=== PATIENT | male | born 1990 | race Caucasian/White ===

== ENCOUNTER 2016-11-05 11:48 | Inpatient (IN) | payer OTHER, MEDICAID ==
[~2016-11-05] VITALS: Ht 167.6 cm; Wt 86.4 kg
[2016-11-05 11:53] VITALS: BP 154/92; PULSE 89; RESP 16; O2SAT 99
--- NOTE | 2016-11-05 12:57 | ED.REPORT ---
HPI-General Illness Date of Service Nov 05, 2016 ED Provider: Alexander Guerra DO 26 year old male with a history of Xanax dependency and THC use presents to the ER brought in by his father referred by patient's counselor due to confusion and memory loss. He endorses auditory hallucinations "hearing voices", but states that he "isn't sure what they are saying, and that they don't bother him ". Patient denies visual hallucinations, suicidal ideation, homicidal ideation, IV drug use, and any other illicit drug use. He admits to alcohol use "only for adventist purposes". Last week patient had a competency hearing for "legal issues", per father. Nursing Notes Stated Complaint: MEMORY CONFUSION ISSUES Chief Complaint: Psychiatric Complaint Nursing Notes Reviewed: Yes Allergies: Coded Allergies: No Known Allergies (Unverified , 11/05/16) General Time Seen by MD: 12:41 Chief Complaint Other (Confusion, Memory Loss) Hx Obtained From: Patient, Other family... (Father) Arrived By: Walk-in Sudden in Onset?: No Onset Occurred: Onset unknown Similar Sx Previous: No Past Medical History Smoking History Never Smoker Social History Alcohol Use: "Social" ("only for adventist purposes") Drug Use: THC Other Social History: Good social support Ambulatory Status Independent Review of Systems Full Review of Systems Psychiatric: Reports: Change mental status, Confusion, Depression, Hallucinations, auditory, Denies: Hallucinations, visual, Homicidal ideation, Hostile, Suicidal ideation, Unable to control self Complete sys rev & neg: except as marked. Physical Exam Vital Signs Vital Signs Date Time Temp Pulse Resp B/P Pulse Ox O2 Delivery O2 Flow Rate FiO2 11/05/16 11:53 37.4 89 16 154/92 99 Room Air Initial VS: Reviewed Head / Eyes: Atraumatic, Normocephalic Neck: Supple, Non-tender, Full range of motion Respiratory: Breath sounds normal, Clear to auscultation, No respiratory distress Cardiovascular: Regular rate & rhythm, Heart sounds normal, Intact distal pulses Extremities: Vascular intact, Neuro intact, No swelling, No tenderness Skin: Warm, Dry, No cyanosis General/Constitutional: Awake, Alert, Well developed, Well nourished Alertness: Positive: Confused Neurologic: Speech NL, No motor deficits, No sensory deficits Mental Status: Positive: Confused Disoriented. Psychiatric: Not suicidal, Not homicidal, Cognitive function NL Abnormal Mood/Affect: Positive: Flat affect Abnormal Thinking / Perception: Positive: Hallucinations, auditory Interpretation & Diagnostics Lab Results Interpretation Result Diagram: 11/05/16 1350 11/05/16 1350 Test 11/05/16 13:50 11/05/16 14:10 White Blood Count 11.6th/mm3 (3.8-10.1) Red Blood Count 5.23mil/mm3 (4.40-5.80) Hemoglobin 15.8g/dL (13.8-17.2) Hematocrit 46.1% (41.0-50.0) Mean Corpuscular Volume 88.1fL (81-100) Mean Corpuscular Hemoglobin 30.2pg (27.0-35.0) Mean Corpuscular Hemoglobin Concent 34.3% (32.0-37.0) Red Cell Distribution Width 12.7% (12.3-15.4) Platelet Count 299bil/L (150-400) Neutrophils (%) (Auto) 77.6% (40-74) Lymphocytes (%) (Auto) 15.3% (14-46) Monocytes (%) (Auto) 6.4% (4-12) Eosinophils (%) (Auto) 0.2% (0-5) Basophils (%) (Auto) 0.3% (0-3) Sodium Level 138mEq/L (134-144) Potassium Level 4.3mEq/L (3.5-5.2) Chloride Level 103mEq/L (97-108) Carbon Dioxide Level 17mmol/L (18-29) Blood Urea Nitrogen 14mg/dL (6-20) Creatinine 1.00mg/dL (0.76-1.27) Estimat Glomerular Filtration Rate 95mL/min (>59) Glucose Level 118mg/dL (60-99) Calcium Level 9.8mg/dL (8.5-10.1) Total Bilirubin 0.3mg/dL (0.0-1.2) Aspartate Amino Transf (AST/SGOT) 25U/L (0-50) Alanine Aminotransferase (ALT/SGPT) 17U/L (0-44) Alkaline Phosphatase 64U/L (25-150) Total Protein 8.5g/dL (6.4-8.4) Albumin 4.8g/dL (3.4-5.0) Thyroid Stimulating Hormone (TSH) 1.030uIU/mL (0.450-4.500) Hold Izquierdo Top Tube Received (Received) Re-Eval/Medical Decision Med Decision/Clinical Course Patient will need mental health evaluation and probable detainment with the [facility]. Care transferred to Dr. constanza Figueroa. Source of Hx: Old records Consultation : Call Returned at: 14:40 Note: Discussed patient case with COLLAR SEPARATOR. Will see patient. Discharge & Departure Shift Change Sign-Out Patient Care Transferred: Yes Discussed Complaint(s): Yes Laboratory Evaluation: Lab evaluation discussed Primary Impression: Psychosis Discharge Condition All VS Reviewed: Yes Condition: Stable Care Transferred to: Dr. Kamara Care Transferred at: 15:01 Fatuma Attestation Portions of this note were transcribed by Samir Reynolds. I, Dr. Guerra, personally performed the history, physical exam and medical decision-making; I reviewed and confirmed the accuracy of the information in the transcribed note. Signed by: Fatuma Grijalva, 11/05/2016 and 15:18 Alexander Guerra DO Nov 05, 2016 12:56 SAMIR REYNOLDS Nov 05, 2016 13:07
[2016-11-05 14:02] LABS: BASOPHILS % (AUTO) 0.3 % (0-3); EOSINOPHILS % (AUTO) 0.2 % (0-5); MONOCYTES % (AUTO) 6.4 % (4-12); Mean Corpuscular Hemoglobin 30.2 pg (27.0-35.0); Mean Corpuscular Volume 88.1 fL (81-100); NEUTROPHILS % (AUTO) 77.6 % (40-74); Platelet Count 299 bil/L (150-400)
[2016-11-05 19:38] VITALS: BP 149/92; PULSE 95; RESP 16; O2SAT 98
[2016-11-05 22:00] VITALS: BP 150/95; PULSE 81; O2SAT 99
[2016-11-05] MEDS ORDERED: Magnesium Hydroxide 10 mL Oral Concentration PO PRN (22:45)
[2016-11-05] MEDS ORDERED: Alum-Mag Hydrox-Simeth 30 mL Suspension PO PRN (22:45)
[2016-11-05] MEDS ORDERED: LORazepam 1 mg Tablet PO ONE (22:45)
[2016-11-05] MEDS ORDERED: Benzocaine-Menthol Lozenge 2/Pkg PO PRN (22:45)
--- NOTE | 2016-11-06 01:51 | NUR ---
Observations 1900 to 0700 Pt arrived on the floor from our ED at 22:40 and was not able to partake in any of the intake process. Pt went straight to his room where he has been since his arrival. Pt first appeared asleep at 23:45 and was observed every 15 minutes through the night as directed.
[2016-11-06] MEDS ORDERED: LORA-302 (04:08)
--- NOTE | 2016-11-06 04:09 | NUR ---
Nursing Admit Note. Pt arrival to unit at 2240 from our ED deemed Gravely disabled by [facility]. Placed on a 72 hour GENA beginning at 2039. Arrived via wheel chair with security and tech. Pt was able to have snack and orient to room only. Pt appeared to be internally distracted, with latent speech but pleasant. Pt was brought to ED by Father, father reports long history of anxiety attacks by patient and other family members. Reported one previous Mental health admission three years earlier in [place] for a period of two weeks. Pt was not followed up post discharge and has not been on medications or seen by a mental health professional. Pt started intake process with Jaun Nunes this week. Affidavit in chart from Sylvia recommending in patient stabilization. Pt was also given a RX for Zyprexa if inpatient status was not achieved. Reported that patient has not been sleeping well for the last week. Pt has appeared more and more confused, having difficulty accomplishing the simplest of tasks around home.
--- NOTE | 2016-11-06 06:12 | NUR ---
Sleep Poor sleep. Pt slept from 2345-041`5 Addendum: 11/06/16 at 0613 by YOLANDA WRAY RN Total sleep 4.5 hours.
[2016-11-06] MEDS: LORazepam 1 mg Tablet PO PRN ×2 (08:16→15:11)
[2016-11-06 15:46] VITALS: BP 157/93; PULSE 124; RESP 16
[2016-11-06] MEDS ORDERED: Alum-Mag Hydrox-Simeth 30 mL Suspension PO PRN (15:55)
[2016-11-06] MEDS ORDERED: Magnesium Hydroxide 10 mL Oral Concentration PO PRN (15:55)
[2016-11-06] MEDS ORDERED: Benzocaine-Menthol Lozenge 2/Pkg PO PRN (15:55)
[2016-11-06] MEDS ORDERED: diphenhydrAMINE 50 mg Capsule PO PRN (15:55)
--- NOTE | 2016-11-06 17:06 | NUR ---
Nursing Day sleep- S- "Yea. I hear people talking. It's been going on for a while." O- Pt. was awake at the start of the day shift. He initially greeted staff warmly, but then seemed to pull back and appear suspicious when questions were asked. He stated: "I'll feel better when I take my medicine', but then declined scheduled meds. they were re offered, and the Pt. took them at 0840. He appeared to have a poor sense of personal space, following staff into staff areas and requiring redirection. Pt. was vague, and declined to provide more information after revealing Auditory hallucinations. A- Internally preoccupied, Hesitant to share history or feelings, hesitant to take medications. P- Cont. BHTP.
--- NOTE | 2016-11-06 18:36 | NUR ---
OBSERVATION DAY SHIFT Pt seems disorganized, confused and anxious. Pt spent much of day in room or walking hallways. Following staff and testing doors. Took shower and given new scrubs. Pt is currently visiting with family. Ate 75% lunch and dinner.
--- NOTE | 2016-11-06 18:39 | NUR ---
NURSING NOTE [id number] Mood: "I've been okay, I think, I think I've been okay, I think" *laughs nervously* Affect: disorganized, confused Behavior: pt. has been wandering the halls, staring for inappropriate lengths of time at empty corey, testing unit exit doors as well as the NS and unable to tell this group underwriter why he is doing so but giggles nervously and says "oh, sorry!" when confronted by this group underwriter. His parents are visiting at time of this writing (19:20). Refused offer of PRN Zyprexa. Thought processes: pt. is disorganized; he had difficulty filling out unit paperwork tonight and required a great deal of instruction to sign his name on signature lines. He appears nervous, anxious. Denies SI/HI/AH/VH but appears very preoccupied.
[2016-11-06] MEDS ORDERED: risperiDONE 1 mg Tablet PO SCH (21:00)
--- NOTE | 2016-11-06 23:11 | HP ---
[address] [address] HISTORY AND PHYSICAL PATIENT: ROMMEL FLORES V : 1990 MR#: [id number] ADMIT: 11/05/2016 JOB ID: [id number] DATE OF SERVICE: 11/06/2016 IDENTIFICATION: The patient is a 26-year-old, single, white male. He reports he lives independently with a roommate but has been staying with his parents for the past several days. He states his parents are retired from the aerospace industry. 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 He states that they live in the [facility]. REASON FOR ADMISSION: Client detained on a 72-hour involuntary treatment hold. He presented to the ED with confusion, memory loss and reported hearing voices. HISTORY OF PRESENT ILLNESS: The patient presents today for evaluation and treatment of psychotic symptoms. I met with him for a 60 minute evaluation and reviewed course and records kept by [facility]. Client's main issue is psychosis manifesting with symptoms of appearing to dissociate, depersonalization, auditory hallucinations, and thought disorganization. The condition is acute and has been developing over the past month. He did have one previous episode where he was admitted in [facility] to an inpatient psych hospital for two weeks in 2013. All the above symptoms are made worse by poor sleep, diet and drug use. Client has stated he has been having trouble sleeping, has been using marijuana and is feeling emotionally overwhelmed. He could not identify any specific stressor. He is currently presenting with no emotional liability but marked cognitive deficits and severe impairment in judgment, insight, reality testing and coping. Client minimizes symptoms of psychiatric review of systems for depression, ivonne, anxiety, trauma and substance abuse, but he appeared to be a poor historian. PAST MEDICAL HISTORY: MEDICATIONS: Client unable to remember previous meds. ALLERGIES: None. ILLNESSES: Client denies. FAMILY MEDICAL HISTORY: Unknown. PAST PSYCHIATRIC HISTORY: [facility] inpatient psych unit reported by father in 2013 for two weeks. Client is not followed by a practitioner here. He went to one session with Tessie Montiel this morning and she immediately sent him to the ED for evaluation that he is of grave disability. PSYCHOSOCIAL: Client was born in [place]. He stated he had a good family life and graduated from high school and attended some college. DRUG AND ALCOHOL USE: He denied but his urine test was positive for THC. Client denied suicidal ideation or previous suicide attempts. RELATIONSHIPS: Single. LATTER-DAY: Faith. LEGAL: Client's father mentioned that he had some legal issues he was trying to deal with at [facility] but he did not elaborate. Client could not relate this to me. PHYSICAL EXAM: Vital signs: 154/92, pulse 89, respirations 16, afebrile. Normal gait. Balance steady. LABS: CBC, liver electrolytes, thyroid normal. UA normal. UDS positive for THC. MENTAL STATUS EXAM: Client neatly dressed, with poor eye contact. He appeared well hydrated. His behavior was lethargic and withdrawn. His attitude was detached but superficially pleasant. His speech was monotone versus mute one-word answers. Mood was "I am fine." Affect was bizarre and incongruent with mood. Thought process: Client unable to relate a coherent history. He appears to be responding to internal stimuli. He showed multiple symptoms of dissociation and loosening of associations. Overall, he had generalized poverty of thought and could not respond to my questions. Thought content: Significant for themes of restlessness and frustration. Client appears to have paranoid delusions, stating that his parents were here and they were waiting for him in the waiting room; we just would not let him go. He denied auditory hallucinations or suicidal ideation. He is oriented to person, place, and date. His memory was impaired. Attention and concentration: Moderately impaired. Insight and judgment: Poor. Impulse control: Highly contained yet rigid and seems to have a difficult time tolerating feelings of guilt. Reality testing is impaired. Competence to handle current stressors is currently being overwhelmed. IMPRESSION: The patient is a 26-year-old, white male, currently living with his parents after he has had difficulty with what appears to be a significant thought disorder. It is complicated by the fact that he is also positive for THC. He does have one previous inpatient hospitalization that we do not have records or information for in [place] in 2013 for two weeks. I was unable to identify a recent stressor and client appears to have not been on psychiatric medications. At this time, he is showing marked symptoms of psychosis with delusional thought, poverty of thought and thought disorganization. DIAGNOSES: [place] I1. Psychosis, unspecified, rule out substance-induced psychosis. 2. Rule out schizophreniform disorder. [place] IIDefer. [place] IIINone. [place] IVUnknown. [place] VCurrent global assessment of functioning equal to 25. PLAN: Recommend client be admitted to our unit and be provided with a high degree of safety through the structure and active adult engagement he will receive here. We will have him participate in one-to-one unit and group activities focused on improving coping skills and reality-based thinking. I talked with client about starting a trial of Risperdal 3 mg at night and Klonopin 0.5 mg at night to target insomnia, agitation and psychotic thought. Client is on a 72-hour involuntary treatment hold and will get a chance to talk to the auto motor mechanic and his network security consultant on Friday.
--- NOTE | 2016-11-07 03:38 | NUR ---
nursing, nights, 11-7 s/o- has appeared to sleep after 2300 during q 15 minute assessments. a- no apparent distress. p- monitor behavior/emotional state, quality, times and amount of sleep, use and effect of medication. nancy
[2016-11-07 09:30] VITALS: BP 149/101; PULSE 104; RESP 16
--- NOTE | 2016-11-07 10:43 | NUR ---
Nursing Day Shift- S- "It was ok,...sort of." (Pt's sleep.) O- Pt. was awake for breakfast. He appeared alert and upbeat. Pt. was asked about his sleep and stated the above. He would not comment further. He was observed following staff into staff areas. He was difficult to redirect, and had a confused expression. Pt. declined to take medications before court tomorrow. A- Confused and psychotic like behavior. Wavering on medication needs. P- Cont. bHTP. Scheduled for court tomorrow.
--- NOTE | 2016-11-07 12:43 | PCM.PNPSY ---
Subjective Date of Service Nov 07, 2016 Subjective I spent 30 minutes both reviewing his treatment plan and providing supportive and educational psychotherapy. I spent more than 50% of the time counseling the patient. I reviewed the treatment plan with the patient and discussed options available including the potential risks, benefits and side effects. Quan reports that he is having auditory hallucinations. The Staff reports that he has been disorganized in thought and needing multiple redirections for poor boundaries. He is tending to check all the doors and to follow people into rooms or offices. They stated he seems dazed and confused. He is not able to Participate well in one-to-one unit and group activities due to thought disorganization not lack of intention. He slept 7 hours. He denies medication side effects. Patient was not able to identify his medications nor what they were used to treat. Current Medications Current Medications Acetaminophen 650 mg Q4H PRN PO Last administered on 11/06/16 07:54; Admin Dose 650 MG; Start 11/05/16 at 22:45; Stop 11/06/16 at 16:17; Status DC Clonazepam 0.5 mg HS PO Last administered on 11/06/16 20:53; Admin Dose 0.5 MG ; Start 11/06/16 at 21:00 Lorazepam 1 mg OT ONCE PO Last administered on 11/05/16 22:48; Admin Dose 1 MG ; Start 11/05/16 at 22:45; Stop 11/05/16 at 22:46; Status DC Lorazepam 1 mg Q4H PRN PO Last administered on 11/06/16 15:11; Admin Dose 1 MG ; Start 11/05/16 at 22:45 Olanzapine 10 mg Q6H PRN PO Last administered on 11/07/16 09:08; Admin Dose 10 MG; Start 11/05/16 at 22:45 Risperidone 3 mg HS PO Last administered on 11/06/16 20:53; Admin Dose 3 MG; Start 11/06/16 at 21:00 Zolpidem Tartrate START WITH 5 MG AND MAY REP... HS PRN PO Last administered on 11/05/16 22:48; Admin Dose 10 MG; Start 11/05/16 at 22:45 Mental Status Exam Appearance: Disheveled Attitude: Cooperative Behavior: Overtly anxious, Distractible Affect: Restricted, Blunted Mood: Dysthymic, Fearful Thought Process/Associations: Other (disorganized) Speech Production: Paucity, Soft Speech Rate: Lags/Latency (poverty of thought) Thought Content: Other (poverty of thought, appears to be rationalizing to normalize bizarre behavior) Danger to Self/Suicidal Ideati: None Danger to Others: None Hallucinations: Auditory (Endorses) Consciousness: Somnolent Orientation: Person, Place Memory: Untestable Estimate Intellectual Function: Above Average Basis for IQ estimate: Awareness current events, Word use/vocabulary, Educational history Attention/Concentration & Cogn: Impaired Insight: Limited Judgement: Limited Result Diagram: 11/05/16 1350 11/05/16 1350 Mental Health Plan The patient is a 26-year-old, white male, currently living with his parents after he has had difficulty with what appears to be a significant thought disorder. It is complicated by the fact that he is also positive for THC. He does have one previous inpatient hospitalization that we do not have records or information for in [place] in 2013 for two weeks. I was unable to identify a recent stressor and client appears to have not been on psychiatric medications. Quan continues to show marked symptoms of psychosis with delusional thought, poverty of thought, thought disorganization, appearing to respond to internal stimuli And poor boundaries requiring frequent redirection. He is choosing to not take medications for the next 24 hours as is his right Before a legal proceeding. He will be going to court tomorrow for a 14 day most restrictive Hearing. [place] I 1. Psychosis, unspecified 2 rule out substance-induced psychosis. 3. Rule out schizophreniform disorder. [place] IIDefer. [place] IIINone. [place] IVUnknown. [place] VCurrent global assessment of functioning equal to 25. Medications Treatments Patient is being provided with a high degree of safety through the structure and active adult engagement. We will focus on developing improved coping skills and identifying stressors that may have led to current episode. We will attempt to: Integrate into therapeutic groups, milieu and individual therapy. Maintain in a closely monitored and structured unit Provide low-stimulation environment Obtain collateral data to assist in treatment planning Assess degree of lability of affect and impulse control Complete safety plan Decrease frequency of relapse and need for re-hospitalization Establish a consistent sleep pattern Medication effective in stabilization of mood and thought process Tolerates medication without side effects Patient will be on the following psychiatric medications: Risperdal 3 mg at bedtime Klonopin 0.5 mg at bedtime Education: Educate patient about recreational drug use as an etiology Address patient's legal status Patient is on a 72 hour involuntary treatment hold. Patient will be given the opportunity to talk to his sleeping room cleaner and the court of appeals judge Friday Disposition: Rodrigue Kirby MD Nov 07, 2016 12:43
[2016-11-07 14:04] VITALS: BP 151/92; PULSE 117; RESP 14
--- NOTE | 2016-11-07 15:17 | NUR ---
Rapid Response Team called a 1410 at the direction of Dr. Connor who was at the Pt's bedside. See report from them. Pt. appeared to be light headed while heading down the grande a 1400. Staff assisted Pt., then notified Dr. Connor. Pt. resting in bed at this time. OIL BURNER recommended allowing Pt. to rest 1 hour then reevaluate. Possible panic or withdrawal.
--- NOTE | 2016-11-07 18:49 | NUR ---
Counseling/Fiber Optic Central Office Installer: S/O: Patient slept 6.5 hours last night per staff. He denies S/I and H/I. He reports hearing voices. He denies visual hallucinations. Depression and anxiety, none noted. A: Patient is cooperative, disheveled, blunted affect, disorganized, poor boundaries, poor insight, poor judgment. P: Follow care plan, coordinate out-patient providers, monitor behavior.
--- NOTE | 2016-11-07 20:20 | NUR ---
Observations 0900 to 2130 Pt affect and mood was confused, disorganized, unsteady, flat, blunted and disheveled. Pt speech and eye contact was poor. Pt was in and out of his room most of the morning, Curve Cleaner noticed pt to be unsteady in D.R. and helped pt safely back to his room. Doctor was notified and rapid response was called (see notes) Pt attended meals in D.R. had a good appetite and ate 80-100% of his meals. Pt maintained behavior throughout the shift. Pt was polite and cooperative. Pt was unable to attend group and unit activities at this time. Pt parents came to visit and it appeared to go well. Pt was observed every 15 minutes throughout the shift as ordered.
[2016-11-07] MEDS ORDERED: risperiDONE 1 mg Tablet PO SCH (21:00)
--- NOTE | 2016-11-07 22:43 | NUR ---
NURSING NOTE [id number] Mood: "ummmm??" *begins to cry w/tears, then giggling and grinning* Affect: disorganized, bizarre, labile, direction-less Behavior: resting in bed at start of shift, later out walking the unit without issue, ambulating with a normal gait and denied feeling dizzy. Pt. became very tearful while speaking to this ad copy writer but could not articulate why he was crying. In the midst of crying he then began to giggle inappropriately and then reverted back to crying. He required verbal instructions to do simple tasks. He asked when he could next have medications and was reminded he had signed "no" on his RTRM form this a.m. Pt. then agreed to sign "yes" to have medications. He was given PRN Zyprexa 10 mg @ 16:58 for auditory hallucinations. No adverse effects noted thereafter and upon reassessment pt. reported improved anxiety. Pt. later visited w/his parents. His scheduled HS Risperdal and Klonopin were withheld at HS per doctor's request as his father reported that when he has taken Risperdal in the past he has had a similar reaction as he had on dayshift when he felt woozy and unstable standing up. Thought processes: disorganized, constricted, endorsed AH but could not tell this ad copy writer what they were saying. Pt. reports he feels safe on the unit.
--- NOTE | 2016-11-08 03:37 | NUR ---
nursing, nights, 11-7 s/o- has appeared to sleep during q 15 minute assessments. a- no apparent distress. p- monitor behavior/emotional state, quality, times and amount of sleep, use and effect of medication. nancy
--- NOTE | 2016-11-08 03:51 | NUR ---
Pt out on unit some in evening, attended evening group. Noted a good visit with family. Presents as shy and reluctant to talk. After initial interaction pt was more open to talking with this staff including participating in group. Pt did try and hold door when his parents were leaving but did not become aggressive about it. Affect pleasant but reserved, with some indications of internal stimuli and disorganization. Asleep at 2200. Pt observed every 15 minutes as ordered.
[2016-11-08] MEDS: LORazepam 1 mg Tablet PO PRN (09:21)
--- NOTE | 2016-11-08 12:30 | PCM.PNPSY ---
Subjective Date of Service Nov 08, 2016 Subjective I spent 30 minutes both reviewing his treatment plan and testifying in court for his 14 day involuntary treatment hold. I spent less than 50% of the time counseling the patient as he could only tolerate a brief session. I reviewed the treatment plan with the patient and discussed options available including the potential risks, benefits and side effects. Quan was mute today and only responded by smiling. He appeared highly confused. The Staff reports that he has been disorganized in thought and needing multiple redirections for poor boundaries. Yesterday he became diaphoretic and appeared to be having a panic attack. He responded well to rest and relaxation. He is not able to Participate well in one-to-one unit and group activities due to thought disorganization not lack of intention. He slept 7 hours. He denies medication side effects. Staff reported that he had been having some dental issues. Quan denied dental pain and on my examination had no swelling. Patient was not able to identify his medications nor what they were used to treat. Mental Status Exam Appearance: Disheveled Attitude: Cooperative Behavior: Overtly anxious, Distractible Affect: Restricted, Blunted Mood: Dysthymic, Fearful Thought Process/Associations: Other (disorganized) Speech Production: Paucity, Soft Speech Rate: Lags/Latency (poverty of thought) Thought Content: Other (poverty of thought, appears to be rationalizing to normalize bizarre behavior) Danger to Self/Suicidal Ideati: None Danger to Others: None Hallucinations: Auditory (Endorses) Consciousness: Somnolent Orientation: Person, Place Memory: Untestable Estimate Intellectual Function: Above Average Basis for IQ estimate: Awareness current events, Word use/vocabulary, Educational history Attention/Concentration & Cogn: Impaired Insight: Limited Judgement: Limited Result Diagram: 11/05/16 1350 11/05/16 1350 Mental Health Plan The patient is a 26-year-old, white male, currently living with his parents after he has had difficulty with what appears to be a significant thought disorder. It is complicated by the fact that he is also positive for THC. He does have one previous inpatient hospitalization that we do not have records or information for in [place] in 2013 for two weeks. I was unable to identify a recent stressor and client appears to have not been on psychiatric medications. Quan continues to show marked symptoms of psychosis with delusional thought, poverty of thought, thought disorganization, appearing to respond to internal stimuli And poor boundaries requiring frequent redirection. Quan is making very little progress. I am recommending switching Risperdal to Zyprexa. Due to the atypical nature of Quan's case we will also recheck CBC to rule out possible infections . Pullman Pullman I 1. Psychosis, unspecified 2 rule out substance-induced psychosis. 3. Rule out schizophreniform disorder. Pullman IIDefer. Pullman IIINone. Pullman IVUnknown. Pullman VCurrent global assessment of functioning equal to 25. Medications Treatments Patient is being provided with a high degree of safety through the structure and active adult engagement. We will focus on developing improved coping skills and identifying stressors that may have led to current episode. We will attempt to: Integrate into therapeutic groups, milieu and individual therapy. Maintain in a closely monitored and structured unit Provide low-stimulation environment Obtain collateral data to assist in treatment planning Assess degree of lability of affect and impulse control Complete safety plan Decrease frequency of relapse and need for re-hospitalization Establish a consistent sleep pattern Medication effective in stabilization of mood and thought process Tolerates medication without side effects Patient will be on the following psychiatric medications: Risperdal 3 mg at bedtime Klonopin 0.5 mg at bedtime LABS: check cbc in am Education: Educate patient about recreational drug use as an etiology Address patient's legal status Patient is on a 14 day involuntary treatment hold. Starting 11/08/2016 Disposition: Callum Rodrigue Connor MD Nov 08, 2016 12:30
--- NOTE | 2016-11-08 14:40 | NUR ---
Counseling/Bonding Machine Setter: S/O: Patient slept 7+ hours last night per staff. Patient was mute during interview with staff and would only smile at various times while remaining mute. A: Patient is cooperative, disheveled, anxious, restricted affect, mute, anxious, disorganized, distractible, confused, poor insight, poor judgment. P: Follow care plan, coordinate out-patient providers, monitor behavior.
--- NOTE | 2016-11-08 17:31 | NUR ---
Nursing Dayshift: S: "I need to talk." O: Sat with patient in the dining room after patient declined to walk the grande. Conversation was one sided for the most part with patient answering with one word or nodding head. Has been ambulating with a slow gait. Latent responses. Softspoken when he does converse. Sullen affect. Agrees to moderate anxiety and depression. Denies harmful thoughts and hallucinations. This AM patient approached med room and requested something for anxiety and received Ativan 1 mg with effective results per patient. Received a [address] A: Quiet. Se. P: CPOC. Monitor mood and behavior.
--- NOTE | 2016-11-08 17:33 | NUR ---
Observations 0900 to 2130 Pt affect and mood was flat, blunted, quiet and disheveled. Pt speech and eye contact was poor. Pt was out of his room most of the morning and isolative in the afternoon. Pt attended meals in D.R. had a good appetite and ate 80-100% of his meals. Pt maintained behavior throughout the shift. Pt was polite and cooperative. Pt is minimally social with staff and peers when approached. Pt mostly keeps to himself. Pt was observed every 15 minutes throughout the shift as ordered.
[2016-11-08 17:51] VITALS: BP 144/99; PULSE 93; RESP 16
--- NOTE | 2016-11-09 03:58 | NUR ---
Nursing Note Farm Loan Representative 7pm to 7am Pt visible on unit at start fo shift aimlessly wandering the unit, would spontaneously stop and starting gate driver one place for several minutes staring straight ahead. Pt appears very internally preoccupied but unwilling to answer questions regarding his mental status. Pt had minimal interaction with peers except to request writing paper and pencil. Pt seemed to be unaware of his surroundings until this telegraphic typewriter operator chief attempted to exit the unit at which time he walked quickly toward the door. Pt given Trazodone 25mg for sleep. Pt went to bed at 2130 and slept through the night. Monitoring ongoing. Addendum: 11/09/16 at 0512 by KAMARI SMITH RN Pt slept through the night uninterrupted. In no acute distress. Monitoring ongoing
--- NOTE | 2016-11-09 04:52 | NUR ---
Noc Observation - Out on unit much of evening interacting with a male peer appropriately in particular. Affect pleasant but guarded, internally preoccupied, disorganized. Would interact and speak with staff when prompted but attempting to get out doors and watching staff to see if he could get close to follow through any door. He did participate in evening group and spoke to having a good day and planning visits with family. Asleep at 2315. Observed Q15 as ordered.
[2016-11-09] MEDS: LORazepam 1 mg Tablet PO PRN (08:37)
[2016-11-09 12:00] VITALS: BP 165/88; PULSE 108; RESP 20
--- NOTE | 2016-11-09 12:05 | PROG NOTE ---
[address] [address] PROGRESS NOTE PATIENT: ROMMEL FLORES V : 1990 MR#: [id number] ADMIT: 11/05/2016 JOB ID: [id number] DATE: 11/09/2016 IDENTIFICATION: A 26-year-old, gentleman hospitalized involuntarily on this unit on November 05, 2016. DIAGNOSES: AXIS I 1. Unspecified psychotic disorder. 2. Nicotine dependence. 3. Cannabis use disorder. AXIS III No acute pain or physical issues. MEDICATIONS: 1. Olanzapine 10 mg a day. 2. He was on Risperdal, which was discontinued yesterday because he had blood pressure changes because of that. 3. Clonazepam 0.5 mg a day. NARRATIVE: According to the staff, about 7 hours of sleep with an Ativan and trazodone p.r.n. Tends to still isolate but less so. A little more cooperative with care. Intake is good. He refused labs this morning. He is still very guarded in the session with me but denies any intent to harm himself or others, and is unclear as to whether he needs to be here. We need to further adjust his antipsychotic medication. Will continue to strengthen his reality testing. His management otherwise stays the same.
--- NOTE | 2016-11-09 12:10 | NUR ---
Tongsman./ c.m. S.:"I'm ok today and how are you?.. I'm not giving any blood today... I can take care of myself..." O.: met with pt. in the Dining room He was pacing around the Dining room on and off. He couldn't sit long at the table. He said that he slept "ok" last night. He denied SI/HI, denied AH/VH. He had a hard time answering questions. He refused to do a blood test. He had a hard time making a decision. He was taking meds but he wasn't sure if he needed them. He would stop in a middle of a sentence or in a middle of his walk. He couldn't explain his behavior. A.: pt. is isolative, confused, internally preoccupied and responding on internal stimuli. He has a flat affect and looks restless. P.: monitor behavior, provide safety in the unit, monitor meds intake; follow care plan.
--- NOTE | 2016-11-09 14:38 | NUR ---
Nursing Day Shift S: "Thanks for the talk." O: Patient quiet for the most part. Ambulates with a slow gait. Does interact on approach though generally in one word responses. Ambulated grande for a short while with this RN. After interaction patient gave the above subjective response. Fair appetite. Minimal interaction with peers. Acknowledges anxiety and depression are medium with a nod. Denies harmful thoughts and hallucinations. A: Calm and quiet. Latent responses. P: CPOC. Monitor mood and behavior.
--- NOTE | 2016-11-09 18:29 | NUR ---
OBSERVATIONS 0700 TO 1900 Pt was pleasant and cooperative with staff. Pt appears to have improved from previous shifts. Pt was more social than on previous shifts, watching TV and participating moderately in activities with peers in the group room. Pt showered and did some laundry. Pt is easily overstimulated and takes time to respond when asked questions. Pt is challenged to participate in any meaningful conversation but is able to answer Y/N and simple questions as well as make simple statements. Pt only exhibited exit-seeking or challenging behavior when his parents arrived for a visit. Maintained Q15 safety checks as directed.
--- NOTE | 2016-11-09 22:44 | NUR ---
Nursing Note 7pm to 11pm Pt visible in the day room at start of shift. Standing still for several minutes at a time before walking a few steps and stopping again. Eyes down cast. When approached pt started laughing under his breath but unable to explain what he found humorous. Pt appears disoriented and confused. When asked how he felt about being on the unit he replied... " Its ok. It will take me a while to get used to it". When given HS meds he looked in the cup and handed it back but eventually took with coaxing. Pt given Trazadone for sleep and went to bed at approx 2130. Addendum: 11/09/16 at 2252 by KAMARI SMITH RN Amended: Links added.
--- NOTE | 2016-11-10 02:31 | NUR ---
Observations 1900 to 0700 Pt isolated to himself for most of the night. Pt was in his room or standing in the hallway for most of the night. Pt first appeared asleep at 22:45 and was observed every 15 minutes through the night as directed.
--- NOTE | 2016-11-10 04:13 | NUR ---
Nursing Note 11pm to 7am Pt slept well throughout the nigh except getting up once to ask staff if he could use the bathroom. Pt reoriented to his room and his bathroom. Pt needed no prn medications this shift. Monitored with q 15 minutes for safety location and accountability.
[2016-11-10 08:36] VITALS: BP 146/92; PULSE 100; RESP 16
--- NOTE | 2016-11-10 11:24 | NUR ---
Pacs Specialist./ c.m. S.: "I'm much better... improving." O.: met with pt. to work on his Treatment plan and goals. He was sitting alone staring down at a space in front of him. He had a hard time expressing his thoughts. He tried to write down his stressors but gave up after some time and allowed engineering writer to write down everything that he could say on his Treatment plan and goals. He slept "ok" last night but he was confused when he woke up in the middle of the night. He denied SI/HI at this time. He admitted having AH/VH. He confirmed that AH were strong but pleasant and he liked that. He started smiling while engineering writer was asking about his AH/VH. He couldn't say if he was depressed or anxious. Pt. had difficulty following the conversation. He was up and down from his sit walking, standing still and staring into a space occasionally. A.: pt. is cooperative, isolative, quiet, confused, internally preoccupied and responding on internal stimuli. He has a hard time formulating his thoughts. P.: monitor behavior, provide safety, monitor meds intake, engage pt. into unit activities; follow care plan.
--- NOTE | 2016-11-10 12:27 | PROG NOTE ---
[address] [address] PROGRESS NOTE PATIENT: ROMMEL FLORES V : 1990 MR#: [id number] ADMIT: 11/05/2016 JOB ID: [id number] DATE: 11/10/2016 IDENTIFICATION: This is a 26-year-old, gentleman hospitalized involuntarily on this unit on November 05, 2016. DIAGNOSES: 1. Unspecified psychotic disorder. 2. Nicotine dependence. 3. Cannabis abuse disorder. MEDICATIONS: 1. Olanzapine 10 mg a day. 2. Clonazepam 0.5 mg a day. Patient seen and discussed with staff. About 7 hours of sleep. One Ativan p.r.n. with trazodone at bedtime to help him sleep. Still confused, but overall easier to redirect. He still appears internally preoccupied and earlier told the therapist that he was still hallucinating perceptual disturbances. Since he is talking about visual hallucinations I asked him if a CT scan of his head has been done in the past to rule out a structural brain lesion, and he states it was done and it was normal. Other than that, I am not having much success getting him to talk. He does not make much eye contact. He is guarded. He smiles inappropriately at times and may need a further increase in olanzapine. Defer that to or Dr. Connor. For now olanzapine stays as it is. reality testing. Encourage him to participate in the treatment modalities of the unit. No acute pain issues in this patient.
--- NOTE | 2016-11-10 15:18 | NUR ---
Nursing Dayshift: S: "I feel bill lost and I need to go to the bathroom." O: Escorted patient to his room where he used his bathroom. Has been slowly ambulating the grande much of the day. Did play ping pong with a female peer this AM. Will diesel engine fitter one spot looking around slowly the continue to walk. Eating with a fair appetite. Attending group activities. Rates anxiety and depression both at a 9/10. Denies harmful thoughts and hallucinations. A: Slow. Latent speech. Med compliant. P: CPOC. Monitor mood and behavior.
[2016-11-10] MEDS: LORazepam 1 mg Tablet PO PRN (15:27)
--- NOTE | 2016-11-10 17:38 | NUR ---
Observations 0700 to 1900 Pt affect and mood was very flat, quiet and blunted. Pt speech is very limited and almost catotonic. Pt eye contact was ok. Pt was in his room most of the shift, coming out for meals and wandering the hallway with blank stare on his face. Pt attended meals in D.R. Pt had a good appetite and ate 100% of breakfast and 25% of lunch and snacks. Pt is currently eating dinner. Pt maintained behavior throughout the shift. Pt was polite and cooperative. Pt declines to participate in unit activities. Pt keeps to himself and is minimally social with staff and peers when approached. Pt attended community meeting, set a daily goal and rated his mood 5/10, with 10 being the best. Pt went out on patio to get some fresh air with staff and peers. Pt was observed every 15 minutes throughout the shift as ordered.
--- NOTE | 2016-11-11 04:00 | NUR ---
Nursing Note Car Knocker Pt showing no signs of improvement from yesterday. Wandering aimlessly around the unit, eyes downcast, no interaction with peers. When attempted to engage pt, speech was soft spoken and minimal and thoughts were delayed. Pt denies all sx of depression and anxiety, denies A/VH but appears to be responding to internal stimuli, seen laughing to himself, is disheveled, initially declined HS meds again this evening but eventually took them with coaxing. Pt went to bed at 2245 and slept uninterrupted through the night. Monitored pt q 15 minutes for safety, location and accountability.
[2016-11-11 08:22] VITALS: BP 156/98; PULSE 80; RESP 16
--- NOTE | 2016-11-11 15:55 | PROG NOTE ---
[address] [address] PROGRESS NOTE PATIENT: ROMMEL FLORES V : 1990 MR#: [id number] ADMIT: 11/05/2016 JOB ID: [id number] DATE: CHIEF COMPLAINT: "I did sleep well, I did wake up early but was able to go back to sleep." This is per patient report. HISTORY OF PRESENT ILLNESS: As stated above, the patient is a 26-year-old male, who reportedly is on a 14 day MR order with significant history of psychoses. On interview, the patient showed significant paucity of thought and speech and appeared to be experiencing internal stimulus. He appeared to have external eye gaze throughout the course of conversation, smiling inappropriately, and was seen earlier during the day area speaking to himself. The patient openly identified that he has experienced auditory and visual hallucinations for quite some time and has shared such information with staff members. He does have a significant history of prior hospitalization in the [facility] for approximately two weeks per family report. He did test positive for marijuana on urine tox screen. He reportedly has been maintained on doses of Klonopin 0.5 mg q.h.s. and Zyprexa 10 mg q.h.s. along with p.r.n.'s. He does appear to continue to present quite paranoid, psychotic and I have discussed further titration of his Zyprexa, hopefully to alleviate some of his presentation. I did express concern about dual benzodiazepine, including I Ativan p.r.n. and also Klonopin, and have elected to discontinue Klonopin. OBJECTIVE: On mental status exam, the patient, as noted above, showed significant paucity of thought. He has significant eye gaze throughout and appears to be quite distracted with internal stimulus. His speech is latent. His mood is somewhat euphoric. His affect is incongruent. His thought process shows evidence of loose and disconnected thinking. He has tangential speech at times. He denies any evidence of suicidal thought. He denied any homicidal ideation. He is quite paranoid and is experiencing active hallucinations. He was alert, oriented to place only. His attention and concentration are fleeting. Insight and judgment are poor. PHYSICAL EXAM: Vital signs current: Temperature is 35.4, pulse 80, respirations 16, BP 156/98. He shows a consistent elevation throughout the past six days ranging from values of 149/101 to current elevation of 156/98. CURRENT MEDICATIONS: Include: 1. Zyprexa 10 mg q.h.s., 10 mg q.6 p.r.n. 2. Trazodone 25 mg q.h.s. p.r.n. 3. Klonopin 0.5 mg q.h.s. 4. Ambien 5 mg q.h.s. ASSESSMENT: Smithfield I. 1. Psychotic disorder,not otherwise specified. 2. Cannabis use disorder. 3. Rule out schizophrenia, paranoid type. [place] II. Deferred. [place] III. Possible hypertension. [place] IV. Stressors are noted for significant altered mental status, concurrent drug usage. [place]field V. Global Assessment of Functioning current 25. PLAN: 1. Recommendations for titration of Zyprexa to 20 mg q.h.s. 2. Discontinuation of Ambien, Klonopin, with primary utilization of p.r.n. doses of Ativan for anxiety, agitation. 3. Continuation of 14-day order as noted.
--- NOTE | 2016-11-11 17:05 | NUR ---
Rigging Man./ c.m. S.:"I'm not bad, not good. It's very hard to think, hard to stay on one pass..." O.: met with pt. in his room. He was sitting on his bed staring into a space. He said that he "slept better last night than previous night." He couldn't describe his mood - "I don't know how to find a word for that." He denied SI/HI. He denied VH but he had AH - "just a little bit". He said that depression was "up and down today and he rated it between 4 and 6/10 at this time. He felt "very anxious" and rated anxiety at 8/10 - "just restless and can't think well." He was in and out of his room during the day but he kept all time to himself. A.: pt. is cooperative, pleasant, quiet. He was able to talk with occasional smiles and had a good eye contact. P.: monitor behavior, monitor for safety, monitor meds intake; follow care plan.
--- NOTE | 2016-11-11 17:59 | NUR ---
Nursing: Day shift: S/O: Quan has been out in the open dining room most of the shift. He sits at the table just staring ahead. He smiles at times and looks as though he is attending to internal stimuli. When asked by bid writer about hearing voices, he denied hearing any voices. latent verbal responses. Responded to questions by bid writer by showing fingers for 4/10 depression,6/10 for anxiety, and no suicidal ideation. When offered med for anxiety, he shook his head. Visiting with parents when they came at 1800. A: Auditory hallucinations. P: Continue to assess for med effectiveness. Addendum: 11/11/16 at 1843 by AUBRIE BOUCHER RN Amended: Links added.
--- NOTE | 2016-11-11 19:29 | NUR ---
Observations 0900 to 2130 Pt affect and mood was very flat and quiet. Pt speech is latent. Pt eye contact was poor. Pt attended meals in D.R. Pt had a good appetite and ate 75% of breakfast and about 60% of lunch and snacks. Pt maintained behavior throughout the shift. Pt was polite and cooperative. Pt declines to participate in unit activities. Pt keeps to himself and is minimally social with staff and peers when approached. Pt attended community meeting, set a daily goal mood was "improved since yesterday". Pt went out on patio to get some fresh air. Pt parents came to visit and it appeared to go well. Pt was observed every 15 minutes throughout the shift as ordered.
--- NOTE | 2016-11-12 03:23 | NUR ---
Observations 1900 to 0700 Pt was visiting with his Parents when my shift started. Pt isolated to himself for most of the night after his parents left. Pt was in his room or standing in the hallway for most of the night. Pt first appeared asleep at 22:30 and was observed every 15 minutes through the night as directed.
--- NOTE | 2016-11-12 12:33 | PROG NOTE ---
[address] [address] PROGRESS NOTE PATIENT: ROMMEL FLORES V : 1990 MR#: [id number] ADMIT: 11/05/2016 JOB ID: [id number] DATE: 11/12/2016 CHIEF COMPLAINT: "I think I am doing well." This per patient report. HISTORY OF PRESENT ILLNESS: As stated above, the patient openly identified that he does feel that his thoughts are significantly improving. He indicates that he heard a few voices earlier this morning but indicates that he feels that things are going much better. He was animated throughout the course of the conversation but did appear to be mildly paranoid and tracking throughout the course of the conversation. His speech was mildly latent but improved. He maintained intermittent eye contact and smiled appropriately, and was appreciative of staff intervention. OBJECTIVE: On mental status exam, he was bright, cooperative, interactive. Casually dressed. He reportedly was seen in the day area previously and was interacting with other patients to some degree. His speech was mildly latent but improved. His mood is neutral with anxious features. Affect was congruent. His thought process showed no evidence of random flight of ideas, loose or disconnected thinking. He does appear to be responding to internal stimulus at points but is improved with his interaction. He denied any suicidal or homicidal ideation. He was alert, oriented to person, place, time, situation. Attention and concentration are notably intact. Insight and judgment are fair. PHYSICAL EXAMINATION: Vital signs of current. Temperature is 35.4, pulse 80, respirations 16, BP remains elevated at 156/98. MEDICATION REVIEW: Includes: 1. Zyprexa 20 mg q.h.s. 2. Trazodone p.r.n. 25 mg at h.s. 3. Zyprexa p.r.n. 10 mg q.6 h. for agitation. Last dose administered on the . ASSESSMENT: AXIS I 1. Schizophrenia, paranoid type. 2. Cannabis use disorder. AXIS II Deferred. AXIS III Hypertension. AXIS IV Stressors are noted for substance abuse issues, chronic mental health issues. AXIS V Global Assessment of Functioning current 30. PLAN: 1. Recommendation is for initiation of lisinopril 10 mg daily based on elevated Bps, which have been consistent over the past week. 2. Continuation of Zyprexa as noted. 3. Continuation of 14-day MR order with probable revision to LR 90 release sometime next week.
--- NOTE | 2016-11-12 12:46 | NUR ---
Auditory hallucination P: Pt. did a lot of staring while in bed room and in common area. He was passive and nonsocial. He appeared to be pre-occupied. I: Encouraged pt. to talk and share his thoughts. He initially denied having any hallucination and then he admitted to auditory hallucination, "it's always there...don't really want to talk about this right now." E: Respect pt. decision. Continue to monitor pt. for anxiety and hallucination. No behavior issues on the unit.
[2016-11-12 12:47] VITALS: BP 153/94; PULSE 120; RESP 16
--- NOTE | 2016-11-12 18:41 | NUR ---
Observations [id number] Pt was asleep upon start of shift. Pt appeared to be more aware and alert today then yesterday. Pt did laundry, was more social and spent more time in the common areas. Pt continues to appear to be internally preoccupied and distracted. He did play ping pong with a peer, and also attended Community Meeting. Pt visited with his family in the evening. He attended all meals, eating an average of 60%. Pt was observed every 15 minutes of shift as directed.
--- NOTE | 2016-11-12 19:34 | NUR ---
Nurses Note Evening Patient has been more spontaneous in interactions with peers and staff with some latency of speech but improved eye contact. His hygiene is much improved with showering and daily shaving with the encouragement of his parents who have been visiting daily. Patient remains medication compliant without adverse effects.Will encourage improved insight into illness and management of same with continued medication compliance and follow-up. Addendum: 11/12/16 at 2 by MARCIAL CESPEDES RN Amended: Links added.
--- NOTE | 2016-11-13 02:18 | NUR ---
Observations 1900 to 0700 Pt was visiting with his Parents when my shift started. Pt isolated to himself in his room for most of the night after his parents left. Pt first appeared asleep at 22:15 and was observed every 15 minutes through the night as directed.
--- NOTE | 2016-11-13 05:24 | NUR ---
Sleep Adequate sleep through the night with no noted distress or awakening per protocol checks. Total sleep 7+ hours.
--- NOTE | 2016-11-13 11:27 | PROG NOTE ---
[address] [address] PROGRESS NOTE PATIENT: ROMMEL FLORES V : 1990 MR#: [id number] ADMIT: 11/05/2016 JOB ID: [id number] DATE: 11/13/2016 CHIEF COMPLAINT: "I had a rough night. It was really noisy on the unit." HISTORY OF PRESENT ILLNESS: As stated above, the patient identified that last evening was difficult for him. He reports that there was a lot of chaos and it was very noisy. He appeared to be somewhat downcast this morning and stated that he is wondering when he can actually go home. I did discuss at length with both he and case resource manager a possibility of filing for LR 90 early next week with conditional release. The patient has shown considerable improvement with medication interventions including Zyprexa 20 mg q.h.s. He has shown significant improvement of affect and interaction. He reportedly maintains fairly consistent eye contact with myself but continues to be somewhat shy and timid on approach. OBJECTIVE: On mental status exam, as noted above, the patient makes intermittent eye contact today. He appears to be more downcast. His speech is latent with paucity but he shows considerable improvement with attempts of interaction. His mood is mildly depressed. His affect is guarded. His thought process shows no evidence of racing thoughts, flight of ideas. He does appear to experience thought blocking at times. His thought content, he denied any evidence of suicidal ideation, indicating that he would never have anything like that. He denies any homicidal ideation. There is a mild sensation of paranoia that is residual but he admits to it. He admits to voices today but indicates that they are not as bad and that they are improving. He admits to several ways of actually containing them. He denies any visual hallucinations. He was alert, oriented to time and place. His attention and concentration intact. Memory intact in the short term, [facility], recent. Insight and judgment are fair. PHYSICAL EXAMINATION: Vital signs from yesterday noted at temperature 36, pulse 120, respirations 16, BP 153/94. MEDICATION REVIEW: Includes: 1. Lisinopril with first dose given this morning of 10 mg. 2. Zyprexa 20 mg q.h.s. 3. Trazodone 25 mg p.r.n. at h.s. Last dose given on the . 4. Ativan 1 mg q.4 h. p.r.n. Last dose given on the . 5. Zyprexa 10 mg q.6 h. p.r.n. Last dose given on the . ASSESSMENT: AXIS I 1. Schizophrenia, paranoid type. 2. Cannabis use disorder. AXIS II Deferred. AXIS III Hypertension. AXIS IV Stressors are noted for mental health issues, substance abuse. AXIS V Global Assessment of Functioning current 30. PLAN: 1. Recommendation is for continuation of all medications noted. 2. Recommendation is for filing a LR 90 with conditional release on Friday of next week was discussed. is manager JONATHON will call and notify the parents.
[2016-11-13 12:14] VITALS: BP 136/83; PULSE 81; RESP 16
--- NOTE | 2016-11-13 13:50 | NUR ---
Nursing Dayshift: S: "If I have any questions I know where to look for you." O: Patient's longest sentence today with this staff. Has been ambulating grande today. Approachable. Some interaction with peers noted. Eating well at meals. Chuckles during interaction. Eyes generally half closed. Denies anxiety, depression, harmful thoughts, and hallucination. A: Calm. Cooperative. P: CPOC. Monitor mood and behavior.
--- NOTE | 2016-11-13 18:51 | NUR ---
Counseling/Assignment Agent: S/O: Patient slept 7+ hours last night per staff. He denies S/I and H/I. He reports the voices are "much less today, just annoying, I'm able to block them out." He denies visual hallucinations. Depression and anxiety were not noted. When asked her mood, patient stated, "Tired." A: Patient is cooperative, latent speech, bright affect at times, fair insight, fair judgment. P: Follow care plan, coordinate out-patient providers, monitor behavior.
--- NOTE | 2016-11-13 20:37 | NUR ---
Obs Dayshift Pt remained in his room most of the day, got up a few times for meals, and stood at the end of the grande looking out the window. Pt did not attend groups, little to no participation. Pt is quiet and keeps to himself. Pt has poor eye contact, head down, quiet, reserved, guarded, isolating. Good ADL's, Good meals
--- NOTE | 2016-11-14 05:14 | NUR ---
Nursing Note manager shift 7pm to7am Pt asleep at start of shift, woke up for HS meds and went back to sleep. Pt pleasant and cooperative. Pt given Trazodone 25 mg at 2100 with good effect, Pt slept through the night without interruption. In no acute distress. Monitored pt. q 15 minutes for safety location and accountability.
[2016-11-14 07:54] VITALS: BP 150/77; PULSE 67; RESP 16
--- NOTE | 2016-11-14 11:10 | PROG NOTE ---
[address] [address] PROGRESS NOTE PATIENT: ROMMEL FLORES V : 1990 MR#: [id number] ADMIT: 11/05/2016 JOB ID: [id number] DATE: 11/14/2016 CHIEF COMPLAINT: "Thank you for visiting with me every day." This is per patient report. HISTORY OF THE PRESENT ILLNESS: As stated above, the patient was seen in his room, somewhat isolative. He indicated that he is having some struggles on the unit with the chaos and volatility. He indicates that he has chosen to isolate to his room and states that he feels more comfortable away from it. He does report that he has had no contact with his parents over the past 24 hours and calls have been placed by the field case manager to update them on the applications for LR 90 early next week. MENTAL STATUS EXAMINATION: He was bright, cooperative, interactive. He continues to be mildly shy on contact and states that is his history. His speech is less latent and he was willing to discuss at length his fears of being on the unit with some of the volatile patients. His mood was neutral. Affect was congruent. His thought process shows no evidence of random flight of ideas, loose or disconnected thinking, thought content. He identified no evidence of suicidal or homicidal ideation. No evidence of paranoia. He indicates that the voices remain, but they are not as bad as prior. He denies any visual hallucinations at this time. He was alert, oriented to time and place. Attention and concentration intact. Memory intact in the short term, [facility], recent. Insight and judgment are fair. PHYSICAL EXAMINATION: VITAL SIGNS: Current, temperature is 36.7, pulse 81, respirations 16, BP is coming down to 136/83. MEDICATION REVIEW: Includes: 1. Lisinopril 10 mg daily. 2. Zyprexa 20 mg q.h.s. 3. Trazodone 25 mg p.r.n. at bedtime. ASSESSMENT: AXIS I: 1. Schizophrenia paranoid type. 2. Cannabis use disorder. AXIS II: Deferred. AXIS III: Hypertension. AXIS IV: Stressors are noted for mental health issues, substance abuse. AXIS V: Global Assessment of Functioning current 30. PLANS: 1. Recommendations for continuation of all medications. 2. Recommendations for applications for LR 90 on Friday with discharge.
--- NOTE | 2016-11-14 18:09 | NUR ---
Nursing Dayshift: S: ""Today's been a good day. I got some exercise." O: Patient has been in and out of his room throughout the day. Has a sheepish grin on his face when approached. Good appetite at meals. Not as latent in speech. Anxiety "up and down like a roller coaster. Good right now." Denies depression, harmful thoughts, and hallucinations. A: Blunted affect. P: CPOC. Monitor mood and behavior.
--- NOTE | 2016-11-14 18:26 | NUR ---
Observations [id number] Pt was asleep upon start of shift. Pt attended all meals, eating an average of 70%. He appears to be less delayed with his responses and requests upon interaction. Pt took a shower and did laundry. He attended groups, appears to be more social with both peers and staff. Pt visited with parents in the evening. He was observed every 15 minutes of shift as directed.
--- NOTE | 2016-11-15 04:02 | NUR ---
nursing, nights, 11-7 s/o- has appeared to sleep after 2200 during q 15 minute assessments. a- no apparent distress. p- monitor behavior/emotional state, quality, times and amount of sleep, use and effect of medication. nancy
--- NOTE | 2016-11-15 05:05 | NUR ---
OBSERVATIONS 1900 TO 0700 Pt was pleasant and cooperative with staff. Pt did not seek out socialization with peers but was generally receptive and friendly when approached. Pt appeared to have an OK visit with mother and father. Pt participated in evening group and was more forthcoming with contributions to group than on previous shifts. Pt reported that his goal has been to work on being less frustrated by his parents and that he felt like he was still bothered by them but that he did better today because he was able to stay calm. Pt rated his day and mood both 8.5/10. Pt was recorded asleep at 2200 and slept through the night. Maintained Q15 safety checks as directed.
[2016-11-15 08:15] VITALS: BP 138/85; PULSE 67; RESP 16
--- NOTE | 2016-11-15 11:30 | NUR ---
Nursing; Day shift: S/O: Quan has been isolative to his room most of the morning. He responds verbally but latently and with brief response. Eyes appear half shut as he sits at the breakfast table. A: Anxious. Isolative. P: Continue to assess.
--- NOTE | 2016-11-15 12:30 | PROG NOTE ---
[address] [address] PROGRESS NOTE PATIENT: ROMMEL FLORES V : 1990 MR#: [id number] ADMIT: 11/05/2016 JOB ID: [id number] DATE: 11/15/2016 CHIEF COMPLAINT: "I think it's a good day if I don't have anxiety for at least 30 minutes." This is per patient report. HISTORY OF PRESENT ILLNESS: As stated above, the patient did meet with myself today, openly identifying that he continues to have daily manifestations of panic attacks and anxiety. He was able to relay that beginning at the age of 8, he experienced constant state of anxiety and difficulties with recurrent panic themes. He indicated that through the years, he has been tried on multiple SSRIs, BuSpar, with limited benefit, and states that he has learned how to deal with it by basically disconnecting from reality. He reports that in the past, marijuana seemed to help as well. I have discussed the possibility of utilization of Neurontin. Side effects and benefits were discussed, and he was agreeable to initiate. OBJECTIVE: On mental status exam, he was bright, cooperative, interactive. His speech was of normal tone, frequency, and volume. His mood was anxious. Affect was congruent. His thought process showed no evidence of racing thoughts, flight of ideas, loose or disconnected thinking. Thought content: He denied any evidence of expressed suicidal ideation, intent, or plan. No evidence of homicidal ideation. No evidence of paranoia. No evidence of hallucinations or delusions. He was alert, oriented to time and place. Attention and concentration intact. Insight and judgment are fair. PHYSICAL EXAM: Vital signs are current. Temperature is 35.1, pulse 67, respirations 16, BP 150/77 with significant improvement from prior. CURRENT MEDICATIONS: Include: 1. Lisinopril 10 mg daily. 2. Zyprexa 20 mg q.h.s. 3. Trazodone 25 mg p.r.n. at h.s. Last dose on the . ASSESSMENT: AXIS I: 1. Schizophrenia, paranoid type. 2. Social phobia. 3. Cannabis use disorder. AXIS II: Deferred. AXIS III: Hypertension. AXIS IV: Stressors are noted for mental health issues, substance abuse. AXIS V: Global Assessment of Functioning of current 30. PLAN: 1. Recommendations for continuation of Zyprexa, lisinopril. 2. Institution of Neurontin 300 mg b.i.d. 3. Recommendations for applications for LR 90 on Friday with plan of discharge.
--- NOTE | 2016-11-15 17:28 | NUR ---
[facility] Day Shift Pt maintained behavioral control throughout the shift. Pt affect appears mostly flat, occasionally bright when engaged with staff or peers. Pt spends most of the shift resting in his room or quietly pacing the unit. Pt is appropriate with staff and peers when engages, but is not social and occasionally latent. Pt attended afternoon group and participated actively. Pt attended all meals and ate approx 80% of all meals.
--- NOTE | 2016-11-15 19:41 | NUR ---
NURSING NOTE [id number] Mood: "stable" *smiles* Affect: calm, pleasant, polite, brightens in conversation Behavior: napping at start of shift, later visible in the DR abhiting w/a peer, spent time out on the patio Thought processes: pt. reports "my anxiety is getting better as each day here goes by", denied SI/HI, no overt delusions or disorganized speech this shift
--- NOTE | 2016-11-15 22:03 | NUR ---
Counseling/Urogynaecologist: S/O: Patient slept 7+ hours last night per staff. He denies S/I and H/I. He reports the voices are "less today." He denies visual hallucinations. Depression and anxiety were not noted. When asked her mood, patient stated, "Feeling okay." A: Patient is cooperative, bright affect at times, fair insight, fair judgment. P: Follow care plan, coordinate out-patient providers.
--- NOTE | 2016-11-16 06:05 | NUR ---
nursing, nights, 11-7 s/o- has appeared to sleep after 2129 during q 15 minute assessments. a- no apparent distress. p- monitor behavior/emotional state, quality, times and amount of sleep, use and effect of medication. nancy
[2016-11-16 09:56] VITALS: BP 149/97; PULSE 85; RESP 16
--- NOTE | 2016-11-16 10:14 | NUR ---
Nursing Day Shift- S- "I don't think I'm hearing any voices. I get lost in my thoughts and anxious. The new medication is helping with anxiety and clear thinking." O- Pt. remained in bed until just after 0900. He reported good sleep, and decreased anxiety that he attributed to Neurontin. He appeared to have improved, but still broken eye contact, and increased verbalization. He denied thoughts of self harm, auditory or visual hallucinations, and rated anxiety as 4/10. A- Improving since admission. P- Cont. [facility]
--- NOTE | 2016-11-16 12:42 | NUR ---
[employer] Crew Chief./ c.m. S.:"I'm feeling a little better, more stable. I got a new medication and it started helping a lot..." O.: met with pt. to discuss his progress. He was sitting alone near TV and looking through a magazine. He didn't sleep well last night - "not so good. I had better nights." He denied SI/HI, denied VH. AH - "everything is calm and relaxed" but he didn't explain what he meant by that. He rated depression and anxiety at 3.5/10. Racing thoughts were "not so much". He continued having some paranoid thoughts - "there is always something to be paranoid about..." He didn't want to specify more. He said that he mostly looking through pictures in the magazine because it was hard to focus on reading. He is expecting a visit from his parents today. A.: pt. is cooperative, isolative, quiet, soft spoken. P.: monitor behavior, continue engaging pt. in the unit activities, provide safety; follow care plan.
--- NOTE | 2016-11-16 13:23 | PROG NOTE ---
[address] [address] PROGRESS NOTE PATIENT: ROMMEL FLORES V : 1990 MR#: [id number] ADMIT: 11/05/2016 JOB ID: [id number] DATE: 11/16/2016 CHIEF COMPLAINT: "I do feel better, I hope it's not just a placebo response." HISTORY OF PRESENT ILLNESS: As stated above, the patient did identify that he is feeling significantly improved. He indicated that he feels that his anxiety is much less than prior. He reports that he feels much calmer and was able to actually maintain very good eye contact throughout the course of conversation. He was seen out in the Day Area interacting with others as well. He reports that he did have conversations with his parents yesterday, who are aware that the patient will be discharged on Friday. Per staff report, the father has requested meetings with myself to discuss the patient's current status. However, Case Management was able to coordinate and inform that the plan is to release on a LR90 on Friday with continuation of outpatient services. OBJECTIVE: On mental status exam, the patient was bright, cooperative, interactive. He maintained good eye contact throughout. He denied any evidence of current suicidal, homicidal ideation. No evidence of paranoid or hallucinations, delusions. He indicated that his hallucinations of auditory complex have been absent over the past 24 hours and he smiled appropriately. He denied any evidence of further distress. He was alert, oriented to person, place, time, situation. His attention and concentration intact. Memory intact in the short term, [facility], recent. Insight and judgment are fair. PHYSICAL EXAM: Vital signs, current, were noted that continuation of elevated BP at 149/97, respirations 16, pulse 85, temperature 36.4. ASSESSMENT: Barton I. 1. Schizophrenia, paranoid type. 2. Cannabis use disorder. 3. Panic disorder without agoraphobia. 4. Social phobia. Barton II. Deferred. Barton III. Hypertension. Barton IV. Stressors are noted for chronic mental health issues, cannabis use. Barton V. Global Assessment of Functioning current 40. PLAN: 1. Recommendations for titration of lisinopril to 20 mg daily. 2. Continuation of Zyprexa 20 mg q.h.s. 3. Neurontin 300 mg b.i.d. 4. Follow up recommendations for LR90 to be applied for on Friday with conditional release and followup with [facility] in [place].
--- NOTE | 2016-11-16 20:41 | NUR ---
OBSERVATIONS 0900 TO 2129 Pt was pleasant and cooperative with staff, somewhat social with peers. Pt was forthcoming with conversation, discussed with this [facility] struggling with his relationship with his parents. Pt said that he sometimes feels "cornered" by his parents here but while at home it's easier for him to escape to his own home when they start to overwhelm him. Pt stated that he didn't feel as though he met his goal today of maintaining a stable mood because while his parents were here he became agitated and anxious and had to tell them that he didn't feel well so they would leave. Pt stated that in the future he will focus on his breathing to manage his anxiety. Pt rated day and mood 5-01/04. Maintained Q15 checks for safety as directed.
--- NOTE | 2016-11-16 22:19 | NUR ---
NURSING NOTE [id number] Mood: "I'm not in the best mood today" (attributed this to a negative visit w/his parents) Affect: calm, polite, cooperative Behavior: pt. has mostly isolated to his room this shift except for when his parents visited and for dinner. He attended evening group. Presented independently for HS meds. Thought processes: pt. reported his mood was down this evening because of "communication issues" with his parents during his visit today. Pt. did not want to elaborate other than that they "disagreed on some things". Pt. maintained that "it's nice when they visit but that today it was too much." Reminded pt. that he determines who can visit and for how long and to consider this if he feels overwhelmed. Pt. denied SI/HI/AH/VH. Declined offers of anxiety and sleep medication PRNs.
--- NOTE | 2016-11-17 06:00 | NUR ---
Sleep 11p-7a Adequate sleep through the night with no noted distress or awakening per protocol checks. Total sleep 8+ hours.
[2016-11-17 08:25] VITALS: BP 139/82; PULSE 84; RESP 16
--- NOTE | 2016-11-17 10:18 | NUR ---
Nursing Day Shift- S- "I wasn't in a good mood last night and I feel bad I wasn't more tolerant of my parents. I had a stomach ache. I think I eat to fast." O- Pt. reported good sleep. He eat well at breakfast, and asked for his scheduled meds. Improved communication and eye contact. Pt. denied suicidal thoughts and rated his anxiety as 4/10. A- Improved, still slightly vague and internally preoccupied. P- Cont. BHTP.
--- NOTE | 2016-11-17 13:53 | PROG NOTE ---
[address] [address] PROGRESS NOTE PATIENT: ROMMEL FLORES V : 1990 MR#: [id number] ADMIT: 11/05/2016 JOB ID: [id number] DATE: CHIEF COMPLAINT: "I did sleep well last night. I had a difficult meeting with my parents." HISTORY OF THE PRESENT ILLNESS: As stated above, the patient identified that he did have a difficult visit with his parents. He indicated that unfortunately they continue to persist of wanting to have a scheduled meeting with either myself or the transplant case manager to consolidate outpatient appointments. I did inform him that Fide will be consolidating aftercare tomorrow with [facility] in [place] and that she can certainly udpate the parents as well. He reportedly feels that his anxiety has significantly improved with dose administration of Neurontin and also feels that his voices are much more containable. OBJECTIVE: On mental status exam, he was bright, cooperative, interactive. He denied any evidence of acute distress. His speech is of normal tone, frequency, and volume. His mood is neutral. His affect was congruent. His thought process showed no evidence of racing thoughts, flight of ideas, loose or disconnected thinking. His thought content: He denied any evidence of suicidal/homicidal ideation. No evidence of current of paranoia. His hallucinations are much more containable indicating that there are just whispers. He was alert, oriented to time and place. His attention and concentration are intact. Insight and judgment are fair. PHYSICAL EXAM: Vital signs, current: Temperature is 36.4, pulse 85, respirations 16. BP yesterday was elevated with dose increase of lisinopril this morning. Values are not listed at this time. ASSESSMENT: [place] I. 1. Schizophrenia, paranoid type. 2. Generalized anxiety disorder. 3. Social phobia. [place] II. Deferred. [place] III. History of hypertension. [place] IV. Stressors are noted for previous cannabis use, disturbance of interpersonal relationships. [place] V. Global Assessment of Functioning current 45. PLANS: 1. Recommendations for scheduled discharge on Friday after LR90 applied. 2. Continuation of all medications as noted.
--- NOTE | 2016-11-17 14:52 | NUR ---
Automotive Customer Experience Advisor./ c.m. S.:"I'm feeling better today." O.: met with pt. in his room. He spent some time in his room after lunch. He slept "fare" last night, "could be better". He felt tired when he woke up in the morning. He believed that his meds were working but he wasn't sure if it was a right dose. He is afraid to increase a dose of meds because he doesn't want to feel overmedicated. On the same time he said that "it might be a room to do that but I'm waiting to see if my body can accumulate enough medications by itself." He denied SI/HI, denied VH. He said that AH "are more under control now, at least they are somewhere out of my head and I want them to be there." He admitted having some paranoid thoughts on and off and he was "cautious" about it. He didn't want to talk about it also. He said that depression was on and off and he denied it at this time. He felt anxious at times but he was "able to control it right now." He said that "deep breathing was helpful to calm" his anxiety down. His concentration was on and off - "It depends upon my level of anxiety." He was wondering about his outpatient care. He wanted to make sure that he would have the same medications after discharge as he was taking here. He agreed to work on his Safety plan but than he felt too anxious and overwhelmed to do that. He agreed to go to an afternoon art group. A.: pt. is cooperative, isolative, quiet, more talkative, has better affect. He looks restless at times. P.: monitor behavior, practice deep breathing, work on Safety plan and follow up; follow care plan.
--- NOTE | 2016-11-17 18:03 | NUR ---
[facility] Day Shift Pt maintained behavioral control throughout the shift. Pt affect appears mostly flat, occasionally bright when engaged with staff or peers. Pt spends most of the shift resting in his room or quietly pacing the unit. Pt is appropriate with staff and peers when engages, but is not social and occasionally latent. Pt attended community meeting in the AM. Pt attended AM and afternoon group, and participated actively. Pt attended all meals and ate approx 80% of all meals.
--- NOTE | 2016-11-17 21:53 | NUR ---
NURSING NOTE [id number] Mood: "okay" *smiles* Affect: calm, brightens in conversation Behavior: more visible this shift than yesterday; attended rec group, walked the halls off and on, attended evening group and presented independently for HS meds Thought processes: more linear, denies SI, denies AH/VH this shift
--- NOTE | 2016-11-18 05:22 | NUR ---
Nursing Note Expressive Therapist 11pm to 7am Pt in bed at start of shift. Slept uninterrupted throughout the night. In no acute distress. Monitored pt with q 15 minute face checks for safety, location and accountability.
[2016-11-18 09:00] VITALS: BP 135/86; PULSE 73; RESP 15
--- NOTE | 2016-11-18 13:31 | NUR ---
Nursing Note [id number] Behavior, Mood S/O: Pt has good appetite. He has been out in the milieu participating with in groups. Conversation tracking is clear & organized with normal rate & rhythm. Full affect. Pleasant & cooperative. Pt rates his mood at a "2 or 3" on a scale of 1-10/10 the worst. He reports "a little" anxiety. Pt has agreed to take medications prior to court tomorrow. Conversation tracking clear & organized with normal rate & rhythm. A: Pt shows improvement since last week. P: Provide supportive environment. Monitor medications & effects.
--- NOTE | 2016-11-18 13:32 | PROG NOTE ---
[address] [address] PROGRESS NOTE PATIENT: ROMMEL FLORES V : 1990 MR#: [id number] ADMIT: 11/05/2016 JOB ID: [id number] DATE: 11/18/2016 CHIEF COMPLAINT: "I think maybe increasing the Neurontin would help out with my anxiety." This is per patient report. HISTORY OF PRESENT ILLNESS: As stated above, the patient did identify that he is wondering about a potential increase of his Neurontin prior to discharge, indicating that he knows that he felt better when they Neurontin was initiated and wonders if a little bit more would help. He maintained good eye contact throughout and smiled appropriately throughout the course of conversation. OBJECTIVE: On mental status exam, he was bright, cooperative, interactive. He made good eye contact throughout. His speech was of normal tone, frequency, and volume. His mood was mildly anxious. Affect was congruent. His thought process showed no evidence of racing thoughts, flight of ideas, loose or disconnected thinking. Thought content, he denied any evidence of current suicidal, homicidal ideation. No evidence of active hallucinations, delusions. He was alert, oriented to time, place, situation. Attention and concentration are gaining. Insight and judgment are gaining. PHYSICAL EXAM: Vital signs, current: Temperature is 36.5, pulse 84, respirations 16, BP 139/82. MEDICATION REVIEW: Includes: 1. Neurontin 300 mg b.i.d. 2. Lisinopril 20 mg daily. 3. Zyprexa 20 mg q.h.s. ASSESSMENT: [place] I. 1. Schizophrenia, paranoid-type by history. 2. Generalized anxiety disorder. 3. Social phobia. 4. Cannabis use. [place] II. Deferred. [place] III. History of hypertension. [place] IV. Stressors are noted for cannabis use, disturbance of interpersonal relationships. [place] V. Global Assessment of Functioning current 45. PLAN: 1. Recommendations to discharge tomorrow with LR 90 2. Continuation of all medications with titration of Neurontin to 600 mg b.i.d.
--- NOTE | 2016-11-18 16:18 | NUR ---
Paint Spraying Machine Operator Helper./c.m. S.:"I feel much better." O.: met with pt. in his room. He slept well last night. He denied SI/HI, denied AH/VH or paranoid/delusional thoughts. He said that his thoughts were clear and he could focus well today. He denied depression and rated anxiety at 2/10 - "just a little. It's more excitement than anxiety. " Pt. completed Safety plan. He talked to his parents and one of them or both agreed to pick him up tomorrow at time of discharge. Pt. was glad that his intake appt. for 90 LRO was scheduled at [facility] in [place]. He said that [facility] location was very close to his home. He was in and out of his room but mostly keeping to himself. He came to the morning group and participated well. A.: pt. is cooperative, pleasant, more active in the program. He has a good eye contact and a soft voice. P.: monitor behavior, court tomorrow for 90 LRO and discharge after that; follow care plan.
--- NOTE | 2016-11-18 18:57 | NUR ---
Observations [id number] Pt was asleep upon start of shift. Pt appears clearer and less internally preoccupied then observed last week. Pt attended all meals, eating an average of 75%. Pt attended groups, and listened to music in the afternoon. Pt is friendly with peers and staff. He was observed every 15 minutes of shift as directed.
--- NOTE | 2016-11-18 22:58 | NUR ---
NURSING NOTE [id number] Mood: "okay" Affect: pleasant, calm, cooperative Behavior: visible off and on in the milieu this shift, watched TV for some time, made some phone calls, presented independently for HS meds Thought processes: logical, linear, reports he is "a little anxious but excited" to discharge tomorrow, overall expressed readiness for discharge and is futuristic. No AH/VH this shift. PRNs Tylenol 650 for 6/10 headache @ HS
--- NOTE | 2016-11-19 00:52 | NUR ---
Observations 1900 to 0700 Pt isolated to himself in his room for most of the night. Pt first appeared asleep at 21:45 and was observed every 15 minutes through the night as directed.
--- NOTE | 2016-11-19 05:14 | NUR ---
Nursing Note- Rn Lab 11pm to 7am Pt asleep at start of shift. Remained asleep with no interruptions. In no acute distress. No prns given Monitored pt with q 15 minute face checks for safety location and accountability
--- NOTE | 2016-11-19 09:25 | PCM.DIMED ---
Discharge Instructions Date of Service Nov 19, 2016 Dates of Hospitalization Nov 05, 2016 at 20:44 Discharge Diagnosis Discharge Diagnosis Schizophrenia, Paranoid Generalized Anxiety Social Phobia Cannabis Use DO Diet No restrictions Activity No restrictions Boubacar Vines DO Nov 19, 2016 09:25
[2016-11-19] MEDS ORDERED: GABA300C PO (09:28)
[2016-11-19] MEDS ORDERED: OLAN20TA16 PO (09:28)
[2016-11-19] MEDS ORDERED: LISI-567 PO (09:28)
--- NOTE | 2016-11-19 11:15 | DIS ---
[address] [address] DISCHARGE SUMMARY PATIENT: ROMMEL FLORES V : 1990 MR#: [id number] ADMIT: 11/05/2016 JOB ID: [id number] DIS: ADMITTING DIAGNOSES: AXIS I 1. Psychotic disorder, not otherwise specified. 2. Rule out substance induced psychoses. 3. Rule out schizophreniform disorder. AXIS II Deferred AXIS III None. AXIS IV Stressors are noted for substance use. AXIS V Global assessment of functioning of current 25. DISCHARGE DIAGNOSES: AXIS I 1. Psychotic disorder, not otherwise specified. 2. Probable schizophrenia, paranoid type. 3. Generalized anxiety disorder. 4. Social phobia. 5. Cannabis use disorder. AXIS II Deferred. AXIS III None. AXIS IV Stressors were noted for substance use issues, chronic mental health issues. AXIS V Global assessment of functioning of current 45-50. REASON FOR ADMISSION: The patient was a 26-year-old male admitted due to acute psychoses with prior history of admission in the [facility]. The patient reportedly has shown significant increasing symptoms of psychoses, paranoia, dissociation, auditory hallucinations over the past 1-2 months. He also admitted to using marijuana on a consistent basis of 1-2 g per day at the point of admission. During the course of hospitalization, the patient was initiated on doses of Risperdal with limited improvement. Later transitioned to doses of Zyprexa. Eventually titrated to 20 mg q.h.s., with considerable improvement of the patient's overall status of mood and also significant difficulties with distortion of reality. Throughout hospital course, the patient was given initial trials of Klonopin which appeared to only disinhibit the patient's presentation. Election to initiate doses of Neurontin eventually titrated to 600 mg b.i.d. showed considerable improvement of the patient's status of anxiety with open reflection that he had been able to control many episodes of panic and also decrease his social anxieties. Throughout hospital course, the patient was agreeable to institute a LR 90 with appropriate followup in the [facility]. He indicated that he felt that his usage of marijuana in the past was in an attempt to a control his anxiety and stated that he definitely would stay away from usage of marijuana due to his improvement and the absence of need. Condition at the time of discharge is on his mental status examination, he was bright, cooperative, interactive. He maintained good eye contact throughout. He showed considerable improvement over the past week with his status of anxiety. His speech was of normal tone, frequency and volume. His mood was neutral. Affect was congruent. His thought process showed no evidence of racing thoughts, flight of ideas, loose or disconnected thinking. Thought content: He denied any evidence of current suicidal or homicidal ideation. No evidence of active hallucinations. Over the past 48 hours, indicated that the voices had seemingly resolved. He denied any difficulties with orientation to person, place, time, situation. His attention and concentration intact. Insight and judgment were fair. DISCHARGE PLANS: Include: 1. Continuation of LR 90 with interventions including case management through [facility]. Appointments have been scheduled for case management. 2. Followup with his family practitioner in reference to a history of hypertension. 3. Continuation of medications including lisinopril 20 mg daily one month supply, no refills. Reason for usage: Hypertension. 4. Continuation of Zyprexa 20 mg q.h.s., one month supply, no refills. Reason for usage: Antipsychotic. 5. Continuation of Neurontin 600 mg b.i.d., one month supply, no refills. Reason for usage: Anxiety.
--- NOTE | 2016-11-19 11:39 | NUR ---
Nursing Note Discharge Pt discharged at 1125 with father. All belongings taken with pt. Scripts sent to [facility] in [place] by e-script for 1 months supply of lisinopril, gabapentin, & olanzapine. Pt denied suicidal/homicidal ideation, depression, & hallucinations prior to d/c. Pt signed all paperwork & expressed understanding of papers & appointment times. Pt cooperative & pleasant.
[2016-11-19 13:15] VITALS: BP 124/84; PULSE 76; RESP 17
--- NOTE | 2016-11-19 17:32 | NUR ---
Counseling/Manager Pipeline: S/O: Patient slept 8+ hours last night per staff. He denies S/I and H/I. He denies auditory and visual hallucinations. Depression and anxiety were not noted. Out-patient appointments: Jaun jasso, 11/25/16 at 9:45am; Dr. Mc, 12/05/16 at 12:45pm; IGNACIA Rodriguez, 01/01/17 at 9:15am. A: Patient is cooperative, brighter, fair insight, fair judgment. P: Follow care plan, coordinate out-patient providers.
== END 2016-11-19 11:25 | disposition home or self-care (01) | DRG 885 ==
LOC: SED 11:48 → MHC 20:44
PROVIDERS: ADMIT Psychiatry & Neurology Psychiatry; ATTEND Psychiatry & Neurology Psychiatry
DX: F29 Unspecified psychosis not due to a substance or known physiological condition (principal); F20.0 Paranoid schizophrenia; F17.200 Nicotine dependence, unspecified, uncomplicated; F12.90 Cannabis use, unspecified, uncomplicated; F40.10 Social phobia, unspecified; F41.1 Generalized anxiety disorder